=== PATIENT | male | born 1955 | race Caucasian/White ===

== ENCOUNTER 2023-06-30 05:30 | Day surgery (SDC) | payer OTHER ==
[~2023-06-30 05:30] MED LIST: ADULT LOW DOSE81 M1 PO; COZAAR100 MG PO; FOSAMAX PLUS D1 EACH PO; METFORMIN HCL500 M1 PO; TAMS0.4C PO; VITAMIN D PO
[2023-06-30] MEDS ORDERED: OXYC1TAB9 PO (08:14)
== END 2023-06-30 14:55 | disposition home or self-care (01) ==
LOC: CIR.AMB 05:30
PROVIDERS: ATTEND Surgery
DX: K64.2 Third degree hemorrhoids (principal); K64.4 Residual hemorrhoidal skin tags; K64.8 Other hemorrhoids; K62.89 Other specified diseases of anus and rectum; K62.5 Hemorrhage of anus and rectum; Z20.822 Contact with and (suspected) exposure to COVID-19; Z88.0 Allergy status to penicillin; E78.5 Hyperlipidemia, unspecified; I10 Essential (primary) hypertension; E11.9 Type 2 diabetes mellitus without complications

== ENCOUNTER 2023-07-07 11:20 | Emergency (ER) | payer OTHER ==
[~2023-07-07] VITALS: Ht 175.3 cm; Wt 95.3 kg
[~2023-07-07 11:20] MED LIST changes: +OXYC1TAB9 PO
[2023-07-07 12:37] LABS: HEMATOCRIT 40.9 % (39.0-48.0); HEMOGLOBIN 13.8 g/dL (13-16.00); MEAN CELL VOLUME 89.8 fL (80.0-100.00); MEAN CORPUSCULAR HEMOGLOBIN 30.3 pg (27.00-32.0); MEAN CORPUSCULAR HGB CONC 33.8 g/dl (32.0-36.0); PLATELET COUNT 237 K/uL (150-450); RED BLOOD COUNT 4.55 M/uL (4.00-6.00); RED CELL DISTRIBUTION WIDTH 15.7 % (11.5-14.5)
== END 2023-07-07 14:10 | disposition home or self-care (01) ==
LOC: ER 11:20
PROVIDERS: Emergency Medicine
DX: K64.8 Other hemorrhoids (principal); Z88.0 Allergy status to penicillin
CPT/HCPCS: 36415; 96365; 99284; J0744; J3490